=== PATIENT | male | born 2000 | race Caucasian/White ===

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

== ENCOUNTER 2024-01-31 18:18 | Inpatient (IN) ==
[2024-01-31 18:56] LABS: Basophils # (auto) 0.07 K/uL (0.00-0.20); Basophils % (auto) 0.7 %; Eosinophils # (auto) 0.12 K/uL (0.00-0.50); Eosinophils % (auto) 1.3 %; Hematocrit (blood only) 51.5 % (42.0-52.0); Hemoglobin 17.6 g/dl (14.0-18.0); Immature Granulocytes # (auto) 0.02 K/uL (0.01-0.20); Immature Granulocytes % (auto) 0.2 %; Lymphocytes # (auto) 2.48 K/uL (1.20-3.40); Lymphocytes % (auto) 26.1 %; Mean Corpuscular Hemoglobin 30.8 pg (25.0-34.0); Mean Corpuscular Hgb Conc 34.2 g/dL (32.0-36.0); Mean Platelet Volume 10.4 fL (9.4-12.4); Monocytes # (auto) 0.64 K/uL (0.11-0.59); Monocytes % (auto) 6.7 %; Neutrophils # (auto) 6.18 K/uL (1.40-6.50); Platelet Count 253 K/uL (130-400); RDW Standard Deviation 39.3 fL (36.4-46.3); Red Blood Count 5.72 M/uL (4.70-6.10); White Blood Count 9.51 K/ul (4.8-10.8)
[2024-01-31 19:27] LABS: Thyroid Stimulating Hormone 2.629 uIu/ml (0.300-4.500)
[2024-01-31 19:36] LABS: Albumin Level 5.1 gm/dl (3.4-5.0); Bilirubin,Total 0.4 mg/dl (0.2-1.0); Calcium 9.9 mg/dl (8.6-10.3); Potassium 4.4 mmol/L (3.5-5.1)
[2024-01-31 19:42] LABS: Albumin Globulin Ratio 2.1 (0.9-2); BUN Creatinine Ratio 7.5 (10-20); Creatinine Clr Calc Pharmacy 154.3 ml/min; Globulin 2.4 gm/dl (2.5-4.0); Total Protein 7.5 gm/dl (6.0-8.3)
[2024-01-31 19:45] LABS: Acetaminophen < 3 ug/ml (10-30); Salicylate < 3.0 mg/dl (3.0-30)
[2024-01-31 21:14] LABS: Appearance Urine Clear (Clear); Bacteria Urine Automated None Seen (None Seen); Bilirubin Urine Negative (Negative); Blood Urine Negative (Negative); Cast Urine Automated 0-2 /lpf (0-2); Color Urine Yellow; Epithelial Cell Urine Auto 0-2 /hpf (0-2); Glucose Urine UA Negative (Negative); Ketones Urine Negative (Negative); Leukocyte Esterase Urine Trace (Negative); Nitrite Urine Negative (Negative); Protein Urine Negative (Negative); RBC Urine Automated 0-2 /hpf (0-2); Specific Gravity Urine 1.005 (1.000-1.030); Urobilinogen Urine Negative (Negative)
--- NOTE | 2024-01-31 21:29 | History & Physical Report ---
Date of Service January 31, 2024 Assessment & Plan (1) Suicidal ideations: Plan: Suicidal ideations Alcohol abuse Med/tele Suicide precautions Psych consult re: suicidality AWSS at risk protocol, DT precautions DVT prophylaxis. SCDs Full code Text document was generated using [employer] voice recognition software. It may contain grammatical or spelling errors. Kindly contact undersigned for clarification of any documentation item in question. History of Present Illness Chief Complaint: Suicidal thoughts Primary Care Provider: Brandan Rodriguez MD History obtained from patient and records. Medical history significant for alcohol abuse, ongoing vape use, Lyme disease status post Rx. Patient has been having suicidal thoughts the last couple of months. Admits to personal stressors. Daily alcohol consumption for some time now. Has tried quitting at home before without success. No prior history of alcohol withdrawal seizures. No chest pain, no SOB, no headache. Patient consulted ER following advice of family. 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 Allergies Allergy/AdvReac Type Severity Reaction Status Date / Time No Known Drug Allergies Allergy Unknown Unverified 06/20/20 11:54 Home Medications Medication Instructions Recorded Confirmed Type No Known Home Medications 01/31/24 01/31/24 History Past Med/Surg History Problem List (Updated 01/31/24 @ 22:19 by Jacky Boyle MD) Suicidal ideations No significant past surgical history Migraines Medical History Migraines Social History Smoking Status: Never smoker Preferred Language: Croatian Feels Safe at Home: Yes Review of Systems Review of Systems: As per HPI, all other systems reviewed and negative Physical Exam Physical Exam: GENERAL: Comfortable, pleasant, alcoholic fetor, no respiratory distress SKIN: Normal color, warm HEENT: Cornish palpebral conjunctivae, no ptosis, moist buccal mucosa NECK : Supple, no tenderness CHEST : CTA, no tenderness HEART : RRR, no obvious murmurs ABDOMEN: Some distention, nontender EXTREMITIES : No LE swelling/tenderness, no other conspicuous deformities noted NEUROLOGIC : Coherent, no facial asymmetry, no other gross focality Results & Data Results & Data Vital Signs (Past 12 Hours) Vital Signs Temp Pulse Resp BP Pulse Ox O2 Del Method 01/31/24 20:00 75 19 116/55 L 96 01/31/24 19:30 77 15 126/91 97 01/31/24 19:28 80 01/31/24 18:23 36.5 C 111 H 20 145/94 H 97 Room Air Laboratory Results Laboratory Results WBC 9.51 K/ul (4.8-10.8) 01/31/24 18:40 RBC 5.72 M/uL (4.70-6.10) 01/31/24 18:40 Hgb 17.6 g/dl (14.0-18.0) 01/31/24 18:40 Hct 51.5 % (42.0-52.0) 01/31/24 18:40 MCV 90.0 fL (80.0-100.0) 01/31/24 18:40 MCH 30.8 pg (25.0-34.0) 01/31/24 18:40 MCHC 34.2 g/dL (32.0-36.0) 01/31/24 18:40 RDW Std Deviation 39.3 fL (36.4-46.3) 01/31/24 18:40 RDW Coeff of Bibiana 12.0 % (11.5-14.5) 01/31/24 18:40 Plt Count 253 K/uL (130-400) 01/31/24 18:40 MPV 10.4 fL (9.4-12.4) 01/31/24 18:40 Immature Gran % (Auto) 0.2 % 01/31/24 18:40 Neut % (Auto) 65.0 % 01/31/24 18:40 Lymph % (Auto) 26.1 % 01/31/24 18:40 [place] % (Auto) 6.7 % 01/31/24 18:40 Eos % (Auto) 1.3 % 01/31/24 18:40 Baso % (Auto) 0.7 % 01/31/24 18:40 Neut # (Auto) 6.18 K/uL (1.40-6.50) 01/31/24 18:40 Lymph # (Auto) 2.48 K/uL (1.20-3.40) 01/31/24 18:40 [place] # (Auto) 0.64 K/uL (0.11-0.59) H 01/31/24 18:40 Eos # (Auto) 0.12 K/uL (0.00-0.50) 01/31/24 18:40 Baso # (Auto) 0.07 K/uL (0.00-0.20) 01/31/24 18:40 Immature Gran # (Auto) 0.02 K/uL (0.01-0.20) 01/31/24 18:40 Sodium 139 mmol/L (136-145) 01/31/24 18:40 Potassium 4.4 mmol/L (3.5-5.1) 01/31/24 18:40 Chloride 104 mmol/L (98-107) 01/31/24 18:40 Carbon Dioxide 24 mmol/L (21-32) 01/31/24 18:40 Anion Gap 11 (3-11) 01/31/24 18:40 BUN 6 mg/dl (6-23) 01/31/24 18:40 Creatinine 0.80 mg/dl (0.6-1.4) 01/31/24 18:40 Est Cr Clr Drug Dosing 154.3 ml/min 01/31/24 18:40 eGFR 128.33 01/31/24 18:40 BUN/Creatinine Ratio 7.5 (10-20) L 01/31/24 18:40 Glucose 98 mg/dl (70-99(Fasting)) 01/31/24 18:40 Calcium 9.9 mg/dl (8.6-10.3) 01/31/24 18:40 Total Bilirubin 0.4 mg/dl (0.2-1.0) 01/31/24 18:40 AST 19 U/L (13-39) 01/31/24 18:40 ALT 11 U/L (7-52) 01/31/24 18:40 Alkaline Phosphatase 54 U/L (34-104) 01/31/24 18:40 Total Protein 7.5 gm/dl (6.0-8.3) 01/31/24 18:40 Albumin 5.1 gm/dl (3.4-5.0) H 01/31/24 18:40 Globulin 2.4 gm/dl (2.5-4.0) L 01/31/24 18:40 Albumin/Globulin Ratio 2.1 (0.9-2) H 01/31/24 18:40 TSH 2.629 uIu/ml (0.300-4.500) 01/31/24 18:40 Urine Color Yellow 01/31/24 20:25 Urine Appearance Clear (Clear) 01/31/24 20: Urine pH 6.0 (4.5-7.5) 01/31/24 20:25 Ur Specific [place] 1.005 (1.000-1.030) 01/31/24 20:25 Urine Protein Negative (Negative) 01/31/24 20:25 Urine Glucose (UA) Negative (Negative) 01/31/24: Urine Ketones Negative (Negative) 01/31/24: Urine Blood Negative (Negative) 01/31/24 20: Urine Nitrite Negative (Negative) 01/31/24: Urine Bilirubin Negative (Negative) 01/31/24 20: Urine Urobilinogen Negative (Negative) 01/31/24 20:25 Ur Leukocyte Esterase Trace (Negative) H 01/31/24 20:25 Urine WBC (Auto) 6-10 /hpf (0-5) H 01/31/24 20:25 Urine RBC (Auto) 0-2 /hpf (0-2) 01/31/24 20:25 U Hyaline Cast (Auto) 0-2 /lpf (0-2) 01/31/24 20:25 U Epithel Cells (Auto) 0-2 /hpf (0-2) 01/31/24 20:25 Urine Bacteria (Auto) None Seen (None Seen) 01/31/24 20:25 Salicylates < 3.0 mg/dl (3.0-30) L 01/31/24 18:40 Acetaminophen < 3 ug/ml (10-30) L 01/31/24 18:40 Ethyl Alcohol mg/dL 195.0 mg/dl (<10.0) H 01/31/24 18:40 SARS-CoV-2, RNA, NAAT NEGATIVE (NEGATIVE) 01/31/24 18:40
[2024-01-31 21:48] LABS: Magnesium 2.2 mg/dl (1.7-2.4)
[2024-01-31 21:50] LABS: Amphetamines+Metham, Urine Neg (Neg); Barbiturates, Urine Neg (Neg); Benzodiazepine, Urine Neg (Neg); Cocaine, Urine Neg (Neg); Fentanyl, Urine Neg (Neg); MDMA (Ecstacy), Urine Neg (Neg); Marijuana, Urine Neg (Neg); Methadone, Urine Neg (Neg); Opiate, Urine Neg (Neg); Phencyclidine, Urine Neg (Neg)
[2024-01-31] MEDS ORDERED: ONDANSETRON INJ 2 MG/ML 2 ML VIAL IV PRN (21:58)
[2024-01-31] MEDS ORDERED: LORazepam 2 MG/1 ML VIAL IV PRN (21:58)
[2024-01-31] MEDS ORDERED: ACETAMINOPHEN 325 MG TAB PO PRN (21:58)
[2024-01-31] MEDS ORDERED: LORazepam 0.5 MG TAB PO PRN (21:59)
[2024-01-31] MEDS: MULTIVITAMIN TAB PO STA (22:11)
[2024-01-31] MEDS: SODIUM CHLORIDE 0.9% 1,000 ML IV ONE (22:12)
[2024-01-31] MEDS: FOLIC ACID 1 MG in SYRINGE 9.8 ML IV STA (22:12)
[2024-01-31] MEDS: THIAMINE HCL 100 MG in SYRINGE 9 ML IV STA (22:12)
--- NOTE | 2024-01-31 23:17 | Communication Note ---
Date of Service: January 31, 2024 [id number] Patient noted transient dizziness described as lightheadedness associated with right face and right arm numbness at the floor. Episode lasting 2 minutes. No previous episodes as per patient. PPE Coherent No dysarthria No facial asymmetry MMTS BUE/BLE 5/5 EKG as per interpretation rate 70, NSR, normal axis, no ischemia CT head: No evidence of acute intracranial pathology. CT angio head/neck: Negative AP TIA MRI brain Aspirin for stroke prophylaxis until MRI resulted Additional stroke workup contingent on MRI results.
[2024-01-31] MEDS: OPTIRAY 320 125ml IV ONE (23:39)
--- NOTE | 2024-02-01 01:37 | CT Scan Report ---
Exam(s): CTA HEAD With Contrast IV Amt: 119 ml opti 320 EXAM: CT Angiography Head With Intravenous Contrast CLINICAL HISTORY: Reason for exam: tia. TECHNIQUE: Axial computed tomographic angiography images of the head with intravenous contrast. Automated exposure control was utilized for the study. A dose lowering technique was utilized adhering to the principles of ALARA. MIP reconstructed images were created and reviewed. CONTRAST: Patient received 119 ml opti 320 of IV contrast COMPARISON: No relevant prior studies available. FINDINGS: The dural venous sinuses are patent. Right internal carotid artery: No acute findings. Intracranial segment is patent with no significant stenosis. No aneurysm. Right anterior cerebral artery: Unremarkable. No occlusion or significant stenosis. No aneurysm. Right middle cerebral artery: Unremarkable. No occlusion or significant stenosis. No aneurysm. Right posterior cerebral artery: Unremarkable. No occlusion or significant stenosis. No aneurysm. Right vertebral artery: Unremarkable as visualized. Left internal carotid artery: No acute findings. Intracranial segment is patent with no significant stenosis. No aneurysm. Left anterior cerebral artery: Unremarkable. No occlusion or significant stenosis. No aneurysm. Left middle cerebral artery: Unremarkable. No occlusion or significant stenosis. No aneurysm. Left posterior cerebral artery: Unremarkable. No occlusion or significant stenosis. No aneurysm. Left vertebral artery: Unremarkable as visualized. Basilar artery: Unremarkable. No occlusion or significant stenosis. No aneurysm. IMPRESSION: CT angiogram of the head. Electronically signed by: Yanet Monteiro MD 02/01/24 01:37 AM
--- NOTE | 2024-02-01 01:41 | CT Scan Report ---
Exam(s): CTA NECK With Contrast IV Amt: 119 ml opti 320 EXAM: CT Angiography Neck With Intravenous Contrast CLINICAL HISTORY: Reason for exam: tia. TECHNIQUE: Routine carotid CT angiography protocol was performed with intravenous contrast. NASCET criteria using the distal ICAs for comparison were used for evaluation of stenoses. Automated exposure control was utilized for the study. A dose lowering technique was utilized adhering to the principles of ALARA. MIP reconstructed images were created and reviewed. CONTRAST: Patient received 119 ml opti 320 of IV contrast COMPARISON: None. FINDINGS: VASCULATURE: Right common carotid artery: Unremarkable. No occlusion or significant stenosis. No dissection. Right internal carotid artery: Unremarkable. Extracranial segment is patent with no occlusion or significant stenosis. No dissection. Right external carotid artery: Unremarkable. No occlusion. Right vertebral artery: Unremarkable. No occlusion or significant stenosis. No dissection. Left common carotid artery: Unremarkable. No occlusion or significant stenosis. No dissection. Left internal carotid artery: Unremarkable. Extracranial segment is patent with no occlusion or significant stenosis. No dissection. Left external carotid artery: Unremarkable. No occlusion. Left vertebral artery: Unremarkable. No occlusion or significant stenosis. No dissection. NECK: Bones/joints: Unremarkable. No acute fracture. Soft tissues: Prominent cervical lymph nodes. Prominent lingual tonsils. Lung apices: Clear. CAROTID STENOSIS REFERENCE USING NASCET CRITERIA: % ICA stenosis = (1 - narrowest ICA diameter/diameter of distal cervical ICA) x 100. Mild - <50% stenosis. Moderate - 50-69% stenosis. Severe - 70-94% stenosis. Near occlusion - 95-99% stenosis. Occluded - 100% stenosis. IMPRESSION: Negative CTA neck. Electronically signed by: Yanet Monteiro MD 02/01/24 01:40 AM
--- NOTE | 2024-02-01 01:53 | CT Scan Report ---
Exam(s): CT HEAD Without Contrast EXAM: CT Head Without Intravenous Contrast CLINICAL HISTORY: Reason for exam: tia. TECHNIQUE: Axial computed tomography images of the head/brain without intravenous contrast. Automated exposure control was utilized for the study. A dose lowering technique was utilized adhering to the principles of ALARA. COMPARISON: Prior head CT from June 20, 2020. FINDINGS: Brain: Unremarkable. No hemorrhage. No significant white matter disease. No edema. Ventricles: Unremarkable. No ventriculomegaly. Bones/joints: Unremarkable. No acute fracture. Soft tissues: Unremarkable. Sinuses: Unremarkable as visualized. No acute sinusitis. Mastoid air cells: Unremarkable as visualized. No mastoid effusion. IMPRESSION: No evidence of acute intracranial pathology. Electronically signed by: Yanet Monteiro MD 02/01/24 01:52 AM
[2024-02-01] MEDS ORDERED: PHARMACIST DISCHARGE MED REC CONSULT PRN (01:55)
[2024-02-01] MEDS: ASPIRIN 81 MG CHEW PO STA (02:18)
[2024-02-01 05:37] LABS: Basophils # (auto) 0.04 K/uL (0.00-0.20); Basophils % (auto) 0.6 %; Eosinophils # (auto) 0.15 K/uL (0.00-0.50); Eosinophils % (auto) 2.1 %; Hemoglobin 16.1 g/dl (14.0-18.0); Immature Granulocytes # (auto) 0.03 K/uL (0.01-0.20); Immature Granulocytes % (auto) 0.4 %; Lymphocytes # (auto) 2.25 K/uL (1.20-3.40); Lymphocytes % (auto) 32.2 %; Mean Corpuscular Hemoglobin 30.3 pg (25.0-34.0); Mean Corpuscular Hgb Conc 33.5 g/dL (32.0-36.0); Mean Corpuscular Volume 90.2 fL (80.0-100.0); Mean Platelet Volume 10.5 fL (9.4-12.4); Monocytes # (auto) 0.52 K/uL (0.11-0.59); Monocytes % (auto) 7.4 %; Neutrophils # (auto) 3.99 K/uL (1.40-6.50); Neutrophils % (auto) 57.3 %; Platelet Count 207 K/uL (130-400); RDW Coefficient of Variation 12.1 % (11.5-14.5); RDW Standard Deviation 39.9 fL (36.4-46.3); Red Blood Count 5.32 M/uL (4.70-6.10); White Blood Count 6.98 K/ul (4.8-10.8)
[2024-02-01 05:57] LABS: BUN Creatinine Ratio 8.1 (10-20); Calcium 9.5 mg/dl (8.6-10.3); Creatinine Clr Calc Pharmacy 143.5 ml/min; Potassium 3.9 mmol/L (3.5-5.1)
[2024-02-01 07:21] LABS: Estimated Average Glucose 91 mg/dl; Hemoglobin A1C 4.8 % (4.5-5.6)
[2024-02-01 07:37] VITALS: RESP 18
[2024-02-01] MEDS: FOLIC ACID 1 MG TAB PO SCH (08:03)
[2024-02-01] MEDS: MULTIVITAMIN TAB PO SCH (08:03)
[2024-02-01] MEDS: THIAMINE HCL 100 MG TAB PO SCH (08:03)
--- NOTE | 2024-02-01 08:10 | Electrocardiogram Report ---
Test Reason : Blood Pressure : */* mmHG Vent. Rate : 68 BPM Atrial Rate : 68 BPM P-R Int : 144 ms QRS Dur : 94 ms QT Int : 394 ms P-R-T Axes : 69 78 48 degrees QTcB Int : 418 ms Sinus rhythm with marked sinus arrhythmia Otherwise normal ECG When compared with ECG of 20-Jun-2020 11:52, No significant change was found Confirmed by Caden Addison ([id number]) on 02/01/2024 8:09:49 AM Referred By: REFERRED SELF Confirmed By: Caden Addison
[2024-02-01 11:02] VITALS: PULSE 55; TEMP 97.9; O2SAT 95
--- NOTE | 2024-02-01 11:10 | Magnetic Resonance Report ---
MR brain wo con HISTORY: 23 years-old Male tia acute stroke like symptoms COMPARISON: Head CT 01/31/2024 TECHNIQUE: Multiplanar multisequence MRI of the brain was obtained without IV contrast FINDINGS: No restricted diffusion to suggest acute or subacute infarct. Midline structures appear unremarkable. Mild adenoid tonsillar enlargement. No acute intracranial hemorrhage, midline shift, abnormal extra- axial collection, hydrocephalus or intra-axial mass. There is normal volume and signal characteristic s of the brain parenchyma. Cerebral venous sinuses and major arterial flow voids appear patent. Skull, orbits and soft tissues a re unremarkable. Mildly motion degraded exam. IMPRESSION: No acute intracranial abnormality. No acute or subacute infarct. ACT 112: Negative or not required by law. The above report was generated using voice recognition software. It may contain grammatical, syntax o r spelling errors. Electronically signed by: Hernandez Norman M.D. 02/01/2024 11:09 AM
--- NOTE | 2024-02-01 12:20 | Psychiatric Consultation ---
Date of Consultation February 01, 2024 Impression / Recommendations Impression 23 y/o M h/o depression, lyme's disease, alcohol abuse who presents with passive SI and admitted for alcohol withdrawal. Psychiatry consulted for evaluation. Presentation consistent with a major depressive episode. Patient likely coping with excess alcohol use and was counseled on abstinence. He is open to a trial of antidepressant and following up with his PCP and a counselor. Presents history of partially treated Lyme's disease due to medication nonadherence and concern for long-term sequela of arthritis, neurologic symptoms and possibly depression. Would benefit from follow-up with the sample mounter for further investigation. Currently denies active suicidal ideation. He is future oriented to return to work, to spend time with family, to engage in follow-up care. He presents intact reality testing wanting to live for his family and friends. Able to contract for safety. No indication for recurrent bedside sitter. Tolerating withdrawal from alcohol well with no significant withdrawal symptoms. Overall, I spent a total of 60 minutes with this case including review of chart records, nursing report, review of lab work, direct evaluation of the patient at bedside, counseling the patient, discussion of the patient with the hospitalist provider, discussion with the psychiatric liaison during clinical rounds, and documentation in the electronic health record. (1) Passive suicidal ideations: (2) MDD (major depressive disorder), single episode, moderate: (3) Alcohol abuse: (4) Post-Lyme disease syndrome: Plan -Start Sertraline 50mg daily -Outpatient counseling f/u -Outpatient Rheumatology f/u -Drug and alcohol resources -No indication for bedside sitter Psych History Identifying Data 23 y/o M h/o depression, lyme's disease, alcohol abuse who presents with passive SI and admitted for alcohol withdrawal. Psychiatry consulted for evaluation. 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 Says that he was going to go to work but then noticed he could not function and that he spoke to his mom who recommended he come to the ER for an evaluation. Says that for the past year he has been escalating his drinking and has been drinking 5-15 light beers a day. His drivers for use include escaping problems and feeling better. Reports prior and currently having low mood, trouble staying asleep, poor appetite, passive suicidal ideations, memory and concentration impairments. Still has pleasure in activities such as hunting. He denies any active suicidal intent and is future oriented to return back to work and get appropriate follow-up. He denies past suicide attempts. He is open to mental health treatment. He reports recent episode of right sided numbness and temporary vision loss in his right eye which resolved within less than a minute. He reports no stress prior to this event. He denies drug use. He denies past episodes of decreased need for sleep with elevated mood, energy, goal directed activity. He denies past auditory visualizations. He denies past depressive episodes. He reports having a good childhood and denies any childhood sexual, physical, emotional abuse. Denies past psychiatric history or family psychiatric history. Reports being treated for Lyme's disease 2 to 3 years ago and did not complete his course of doxycycline "took 1 dose". Complains of arthritis and did not follow up with rheumatology. Currently lives with his mother and father. Has 2 children from separate mothers. 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 Allergies Allergy/AdvReac Type Severity Reaction Status Date / Time No Known Drug Allergies Allergy Unknown Unverified 06/20/20 11:54 Home Medications Medication Instructions Recorded Confirmed Type naltrexone 50 mg tablet 50 mg PO DAILY #30 tabs 02/01/24 Rx Patient History Medical History Migraines Social History Smoking Status: Current every day smoker Tobacco Type: E-cigarettes / Vaping Do You Dip or Chew Tobacco: Yes; Hx Alcohol Use: Yes Alcohol type: beer Hx Substance Use: No Preferred Language: Georgian Communication Ability: Effective Experimental Mechanic Required: No Beliefs That Will Affect Care: None Current Living Situation: Parent Feels Safe at Home: Yes Assistive Devices: None Physical Exam Mental Examination: Appearance: Well Groomed Eye Contact: Maintains Eye Contact Motor Behavior: Unremarkable Speech: Normal Mood: Euthymic Affect: Constricted Thought Process: Intact and Linear Thought Content: Intact Hallucinations: None Insight: Fair Judgement: Poor (to limited, poor f/u and med adherence) Vital Signs (Past 24 Hours): Last Vital Signs Temp 36.6 C 02/01/24 11:02 Pulse 55 L 02/01/24 11:02 Resp 18 02/01/24 11:02 BP 113/63 02/01/24 11:02 Pulse Ox 95 02/01/24 11:02 O2 Del Method Room Air 02/01/24 11:02 Results & Data (PSY) Medications Administered Folic Acid (Folic Acid 1 Mg Tab) [facility] Stop: 03/02/24 08:59 Last Admin: 02/01/24 08:03 Dose: 1 mg Documented By: BRENDA Multivitamins (Multivitamin Tab) 1 tab [facility] Stop: 03/02/24 08:59 Last Admin: 02/01/24 08:03 Dose: 1 tab Documented By: BRENDA Thiamine HCl (Thiamine Hcl 100 Mg Tab) 100 [facility] Stop: 03/02/24 08:59 Last Admin: 02/01/24 08:03 Dose: 100 mg Documented By: BRENDA Coding [place] [address] [facility] Care Lvl 2 Patient Type Established History Comprehensive Exam Comprehensive Medical Decision Making Moderate Complexity Diagnoses Passive suicidal ideations R45.851 MDD (major depressive disorder), single episode, moderate F32.1 Alcohol abuse F10.10 Post-Lyme disease syndrome B94.8
--- NOTE | 2024-02-01 12:46 | Discharge Summary ---
Discharge Summary Date of Service February 01, 2024 Principal Dx & Hospital Course #1 = Principal Diagnosis (1) Alcohol abuse: (2) Alcohol intoxication: (3) Passive suicidal ideations: (4) Post-Lyme disease syndrome: (5) Hypertriglyceridemia: Plan Patient presented to the emergency room with complaints of suicidal thoughts and excessive alcohol use over the past few months. He did not have a specific plan but sought attention for his alcohol misuse as well. The emergency room was noted to be intoxicated. Was referred for further evaluation. Patient was observed in the hospital. He had no symptoms of any type of alcohol withdrawal. Patient complained of some right face and hand paresthesias. He got extensive workup for stroke. MRI was negative for any type of vascular insult. His symptoms completely resolved after he was through his intoxicated phase. Acute stroke was ruled out. Psychiatry consultation was obtained. Conversation with the psychiatrist patient was no longer suicidal now that he was not intoxicated. He could contract for safety. He was not interested in any type of inpatient alcohol rehab. He was given information on outpatient counseling as well as outpatient alcohol rehab services. Time discharged patient is awake alert and oriented. No neurological symptoms. He is no longer suicidal. We discussed naltrexone use. He was interested in giving that a try. Will give him pr escription for naltrexone 50 mg to start after discharge. I encouraged him to pursue these outpatient community services and counseling. He will be discharged home to follow-up with his outpatient provider Notes For Next Care Provider Continue encourage patient to participate with outpatient rehab services and counseling May need additional/repeat testing of cholesterol panel Medication Changes From Visit Naltrexone Admission HPI Per Admitting Provider History obtained from patient and records. Medical history significant for alcohol abuse, ongoing vape use, Lyme disease status post Rx. Patient has been having suicidal thoughts the last couple of months. Admits to personal stressors. Daily alcohol consumption for some time now. Has tried quitting at home before without success. No prior history of alcohol withdrawal seizures. No chest pain, no SOB, no headache. Patient consulted ER following advice of family. 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 Lungs: Clear to auscultation, decreased, no wheezes rales or rhonchi CV: S1-S2, regular Abdomen: Soft, nontender, nondistended Extremities: No significant edema Neuro: No focal deficits Psych: Cooperative, normal mood Updated Medication List Medication Instructions Recorded Confirmed Type naltrexone 50 mg tablet 50 mg PO DAILY #30 tabs 02/01/24 Rx Hospital Stay Data Consultations 01/31/24 21:24 ED Decision to Admit Stat 01/31/24 21:58 Consult Psychiatry Routine Diagnostic Imagining Performed 01/31/24 23:13 CT angio head w con Stat CT angio neck with con Stat CT head/brain wo con Stat 02/01/24 01:56 MR brain wo con Routine Reviewed imaging, laboratory and diagnostic studies. Pertinent findings as below. MRI of the brain no evidence of acute infarction or abnormalities CBC completely within normal limits BMP within normal limits Creatinine 0.86 LFTs within normal range Triglycerides 344 Cholesterol 209 LDL 98 TSH 2.6 Urinalysis unremarkable Pending Results Patient Have Any Pending Studies at Discharge: No Discharge Instructions Given to Patient (Per Discharging Provider) Strongly recommend you stop all beer and alcohol strongly recommend you pursue outpatient therapy for your alcohol use disorder Total Time Total Time Spent Total Time Spent (In Minutes): 33
[2024-02-01 13:14] VITALS: BP 143/82
--- NOTE | 2024-02-01 21:47 | Emergency Department Note ---
Impression & Plan Suicidal ideations, Alcohol dependence ED Provider Note CHIEF COMPLAINT: Mental health evaluation HISTORY OF PRESENT ILLNESS: This 23-year-old male patient no significant past medical history with the exception of alcohol abuse presents to the emergency department with complaints of suicidal ideation. The patient states he has many stressors including working 6 days a week, having 2 children to 2 different women. He was served paperwork by his second girlfriend today and mother of his young son. Patient states he drinks approximately 15 beers a day. He does vomit upon return home from third shift in the driveway before he can start drinking again. Patient states he got to work this evening and was having an anxiety attack. He called his mother and stated that he was feeling suicidal. Patient's mother arrived within a few minutes and brought him to the hospital for evaluation. Patient states he is voluntary for admission, has never seen a psychiatrist before, has never had counseling or been on medications. He denies any clear plan for self-harm. REVIEW OF SYSTEMS: A review of systems was performed with positives and pertinent negatives listed in the history of present illness. 10 systems were reviewed and are otherwise negative. ALLERGIES: see below MEDICATIONS: see below PMH: see below SOCIAL HISTORY: see below DDx: Alcohol intoxication, alcohol dependency, situational stressors, suicidal ideation, major depression, among others. PHYSICAL EXAM: Vital signs reviewed. General: Well-appearing 23-year-old male, in no significant distress. HEENT: No scleral icterus, PERRLA, neck supple. Moist mucous membranes. Cardiovascular: Regular rate and rhythm, no extra sounds. Pulmonary: Clear to auscultation bilaterally, normal work of breathing. Abdomen: Soft, nontender, nondistended, positive bowel sounds. Musculoskeletal: Atraumatic, no peripheral edema. Psych: Positive SI without a plan, negative HI Neurologic: Patient awake alert and oriented x 3, speech is clear Skin: Warm, dry, no rash EMERGENCY DEPARTMENT COURSE/MDM: This patient was evaluated and appeared to be in no significant distress. Patient was medically evaluated and noted to be fairly intoxicated with a blood alcohol level nearly 200. Patient was referred to the mental health director of casework department and due to his suicidal ideation, alcohol dependency and situational stressors, was felt to be in the patient's best interest for inpatient admission. Several psychiatric facilities felt uncomfortable as the patient may withdrawal from alcohol and they did not feel comfortable with detox. It was determined that the patient will be admitted by the medical team for monitoring to ensure no withdrawals prior to hospitalization for psychiatric care. An IV was established and the patient was medicated with IV folate, IV thiamine and hydrated normal saline solution. He was given a multivitamin by mouth. Patient and family have expressed understanding of the plan and agreed. DISPOSITION: Admission Past Med/Surg History Problem List (Updated 02/03/24 @ 18:16 by Tammie Booker MD) Alcohol dependence (Acute) Hypertriglyceridemia Alcohol intoxication Post-Lyme disease syndrome Passive suicidal ideations Alcohol abuse MDD (major depressive disorder), single episode, moderate Suicidal ideations (Acute) No significant past surgical history Migraines Social History Smoking Status: Current every day smoker Tobacco Type: E-cigarettes / Vaping Do You Dip or Chew Tobacco: Yes; Hx Alcohol Use: Yes Alcohol type: beer Hx Substance Use: No Preferred Language: Somali Communication Ability: Effective Founder And Chief Executive Officer Required: No Beliefs That Will Affect Care: None Current Living Situation: Parent Feels Safe at Home: Yes Assistive Devices: None Allergies Allergies Allergy/AdvReac Type Severity Reaction Status Date / Time No Known Drug Allergies Allergy Unknown Unverified 06/20/20 11:54 Home Meds Previous Rx's Medication Instructions Recorded naltrexone 50 mg tablet 50 mg PO DAILY #30 tabs 02/01/24 Results & Data (ED) Home Medications Current Medication List: was personally reviewed by me Laboratory Data Attestation: I reviewed the patient's lab results. 02/01/24 04:35 02/01/24 04:35 Lab Results 01/31/24 01/31/24 Range/Units 18:40 20:25 WBC 9.51 (4.8-10.8) K/ul RBC 5.72 (4.70-6.10) M/uL Hgb 17.6 (14.0-18.0) g/dl Hct 51.5 (42.0-52.0) % MCV 90.0 (80.0-100.0) fL MCH 30.8 (25.0-34.0) pg MCHC 34.2 (32.0-36.0) g/dL RDW Std Deviation 39.3 (36.4-46.3) fL RDW Coeff of [place] 12.0 (11.5-14.5) % Plt Count 253 (130-400) K/uL MPV 10.4 (9.4-12.4) fL Immature Gran % (Auto) 0.2 % Neut % (Auto) 65.0 % Lymph % (Auto) 26.1 % Mineral % (Auto) 6.7 % Eos % (Auto) 1.3 % Baso % (Auto) 0.7 % Neut # (Auto) 6.18 (1.40-6.50) K/uL Lymph # (Auto) 2.48 (1.20-3.40) K/uL Mineral # (Auto) 0.64 H (0.11-0.59) K/uL Eos # (Auto) 0.12 (0.00-0.50) K/uL Baso # (Auto) 0.07 (0.00-0.20) K/uL Immature Gran # (Auto) 0.02 (0.01-0.20) K/uL Sodium 139 (136-145) mmol/L Potassium 4.4 (3.5-5.1) mmol/L Chloride 104 (98-107) mmol/L Carbon Dioxide 24 (21-32) mmol/L Anion Gap 11 (3-11) BUN 6 (6-23) mg/dl Creatinine 0.80 (0.6-1.4) mg/dl Est Cr Clr Drug Dosing 154.3 ml/min eGFR 128.33 BUN/Creatinine Ratio 7.5 L (10-20) Glucose 98 (70-99(Fasting)) mg/dl Calcium 9.9 (8.6-10.3) mg/dl Magnesium 2.2 (1.7-2.4) mg/dl Total Bilirubin 0.4 (0.2-1.0) mg/dl AST 19 (13-39) U/L ALT 11 (7-52) U/L Alkaline Phosphatase 54 (34-104) U/L Total Protein 7.5 (6.0-8.3) gm/dl Albumin 5.1 H (3.4-5.0) gm/dl Globulin 2.4 L (2.5-4.0) gm/dl Albumin/Globulin Ratio 2.1 H (0.9-2) TSH 2.629 (0.300-4.500) uIu/ml Urine Color Yellow Urine Appearance Clear (Clear) Urine pH 6.0 (4.5-7.5) Ur Specific [place] 1.005 (1.000-1.030) Urine Protein Negative (Negative) Urine Glucose (UA) Negative (Negative) Urine Ketones Negative (Negative) Urine Blood Negative (Negative) Urine Nitrite Negative (Negative) Urine Bilirubin Negative (Negative) Urine Urobilinogen Negative (Negative) Ur Leukocyte Esterase Trace H (Negative) Urine WBC (Auto) 6-10 H (0-5) /hpf Urine RBC (Auto) 0-2 (0-2) /hpf U Hyaline Cast (Auto) 0-2 (0-2) /lpf U Epithel Cells (Auto) 0-2 (0-2) /hpf Urine Bacteria (Auto) None Seen (None Seen) Salicylates < 3.0 L (3.0-30) mg/dl Urine Opiates Screen Neg (Neg) Ur Methadone, Qual Neg (Neg) Urine Fentanyl Screen Neg (Neg) Acetaminophen < 3 L (10-30) ug/ml Urine Barbiturates Neg (Neg) Ur Phencyclidine (PCP) Neg (Neg) U Amphetamin/Meth Scrn Neg (Neg) MDMA (Ecstasy) Screen Neg (Neg) U Benzodiazepines Scrn Neg (Neg) Ur Cocaine Metabolite Neg (Neg) U Marijuana (THC) Screen Neg (Neg) Ethyl Alcohol mg/dL 195.0 H (<10.0) mg/dl Lyme Disease Screen Negative (Negative) SARS-CoV-2, RNA, NAAT NEGATIVE (NEGATIVE) Administered Medications Discontinued Medications Aspirin (Aspirin 81 Mg Chew) 324 mg PO NOW STA Stop: 02/01/24 01:55 Last Admin: 02/01/24 02:18 Dose: 324 mg Documented By: MJD Folic Acid (Folic Acid 1 Mg Tab) 1 mg PO QAM [facility] Stop: 03/02/24 08:59 Last Admin: 02/01/24 08:03 Dose: 1 mg Documented By: BCD Thiamine HCl 100 mg/ Syringe 10 mls @ 2 mls/min IV NOW STA Stop: 01/31/24 20:56 Last Admin: 01/31/24 22:12 Dose: 2 mls/min Documented By: NAW Folic Acid 1 mg/ Syringe 10 mls @ 5 mls/min IV NOW STA Stop: 01/31/24 20:53 Last Admin: 01/31/24 22:12 Dose: 5 mls/min Documented By: SUE Sodium Chloride (Nss) 1,000 mls @ 999 mls/hr IV .Q1H1M ONE Stop: 01/31/24 21:52 Last Infusion: 01/31/24 23:34 Dose: Infused Documented By: Admin: 01/31/24 22:12 Dose: 999 mls/hr Documented By: SUE Ioversol (Optiray 320 125ml) 119 ml IV ONCE ONE Stop: 01/31/24 23:40 Last Admin: 01/31/24 23:39 Dose: 119 ml Documented By: MELISSA Multivitamins (Multivitamin Tab) 1 tab PO NOW STA Stop: 01/31/24 20:53 Last Admin: 01/31/24 22:11 Dose: 1 tab Documented By: SUE Multivitamins (Multivitamin Tab) 1 tab PO QAM [facility] Stop: 03/02/24 08:59 Last Admin: 02/01/24 08:03 Dose: 1 tab Documented By: BRENDA Thiamine HCl (Thiamine Hcl 100 Mg Tab) 100 mg PO QAM [facility] Stop: 03/02/24 08:59 Last Admin: 02/01/24 08:03 Dose: 100 mg Documented By: BRENDA Discharge Plan Visit Data Chief Complaint: Mental Health Evaluation Stated Complaint: MENTAL HEALTH EVAL ED Provider: Tammie Booker Discharge Problem: Suicidal ideations, Alcohol dependence Patient Disposition: Admitted As Inpatient Discharge Instructions Interventions: ED Discharge Assessment Last Done: 01/31/24 22:40 Discharge Problem: Alcohol dependence Qualifiers: Substance use status: with intoxication Complication of substance-induced condition: with unspecified complication Qualified Code(s): F10.229 - Alcohol dependence with intoxication, unspecified
[2024-02-02] MEDS ORDERED: ASPIRIN 81 MG ECTAB PO SCH (09:00)
== END 2024-02-01 13:35 | disposition home or self-care (01) | DRG 897 ==
LOC: ED 18:18 → 2W 21:30